=== PATIENT | male | born 1955 | race Caucasian/White ===

== ENCOUNTER 2018-04-14 17:53 | Emergency (ER) | payer OTHER ==
[2018-04-14 18:25] VITALS: RESP 18
--- NOTE | 2018-04-14 19:03 | ED ---
Skin/Abscess/FB HPI - General Chief complaint: Skin/Abscess/Foreign Body Stated complaint: rt elbow swelling Time Seen by Provider: 04/14/18 18:42 Source: patient, RN notes reviewed Mode of arrival: ambulatory Limitations: no limitations - History of Present Illness Initial comments: This is a 62-year-old male who presents to the emergency department with chief complaint of swollen, painful right elbow. Patient states that he noticed a "sac" his right elbow 2 days ago. He states that the swelling has progressively worsened. Reports mild pain. States he has normal range of motion of the elbow. Denies any injury or trauma but does state that he is unsure if he may have bumped his elbow on something. States he has a history of staph infections. Denies fevers or chills, chest pain or shortness of breath , abdominal pain, nausea or vomiting. - Related Data Home Medications Medication Instructions Recorded Confirmed Levothyroxine Sodium [Synthroid] 25 mcg PO DAILY 04/14/18 04/14/18 Multivitamins, Thera [Multivitamin 1 tab PO DAILY 04/14/18 04/14/18 (formulary)] Previous Rx's Medication Instructions Recorded Cephalexin [Keflex] 500 mg PO BID #10 capsule 04/14/18 Allergies Allergy/AdvReac Type Severity Reaction Status Date / Time codeine Allergy Itching Verified 04/14/18 19:20 Review of Systems ROS Statement: Those systems with pertinent positive or pertinent negative responses have been documented in the HPI. ROS Other: All systems not noted in ROS Statement are negative. Past Medical History Additional Past Medical History / Comment(s): hepatits c History of Any Multi-Drug Resistant Organisms: None Reported Past Surgical History: No Surgical Hx Reported Past Psychological History: No Psychological Hx Reported Smoking Status: Never smoker Past Alcohol Use History: Occasional Past Drug Use History: None Reported General Exam - General Exam Comments Initial Comments: General: Awake and alert, well-developed; in no apparent distress. HEENT: Head atraumatic, normocephalic. Pupils are equal, round and reactive to light. Extraocular movements intact. Oropharynx moist without erythema or exudate. Neck: Supple. Normal ROM. Cardiovascular: Regular rate and rhythm. No murmurs, rubs or gallops. Chest symmetrical. Respiratory: Lungs clear to auscultation bilaterally. No wheezes, rales or rhonchi. Normal respiratory effort with no use of accessory muscles. Musculoskeletal: Normal range of motion of the right elbow. There is effusion, mild tenderness, warmth and redness at the olecranon process. Mild erythema noted at the medial aspect of the right elbow. Sensation is intact. Radial pulses are 2+ equal and palpable bilaterally. Skin: [place], warm and dry with changes to the right elbow noted above. Neurological: Alert and oriented x3. CN II-XII grossly intact. Speech is fluent and answers are appropriate. No focal neuro deficits. Psychiatric: Normal mood and affect. No overt signs of depression or anxiety noted. Limitations: no limitations Course Vital Signs 04/14/18 18:22 Temperature 98.3 F Pulse Rate 71 Respiratory 18 Rate Blood Pressure 116/70 O2 Sat by Pulse 98 Oximetry Medical Decision Making - Medical Decision Making This is a 62-year-old male presents to the emergency department with chief complaint of right elbow swelling and pain. Patient denies any specific injury or trauma, but is unsure if he may have bumped his right elbow on something. He reports swelling that started 2 days ago. States that the swelling has worsened. On physical examination, there is swelling over the olecranon process with mild erythema, warmth and tenderness. Patient has normal range of motion without pain of the right elbow. Neurovascularly intact. X-ray was obtained which revealed posterior soft tissue swelling which could relate to olecranon bursitis. Case was discussed with attending physician, Dr. Dominique. Patient is afebrile and vital signs are stable. Recommend rest, ice and NSAIDs. Due to signs erythema at the medial elbow, patient will be started on Keflex. Return parameters were discussed. - Radiology Data Radiology results: report reviewed, image reviewed Right elbow x-ray impression: Posterior soft tissue swelling. No fracture. This could relate to olecranon bursitis. Disposition Clinical Impression: Olecranon bursitis of right elbow Disposition: HOME SELF-CARE Condition: Good Instructions: Elbow Bursitis (ED) Additional Instructions: Please take medications as prescribed. Please follow up with primary care provider within 1-2 days. Return to emergency department if symptoms should worsen or any concerns arise. Prescriptions: Cephalexin [Keflex] 500 mg PO BID #10 capsule Is patient prescribed a controlled substance at d/c from ED?: No Referrals: None,Stated [Primary Care Provider] - 1-2 days Time of Disposition: 19:49
--- NOTE | 2018-04-14 19:19 | XR ---
EXAMINATION TYPE: XR elbow complete RT DATE OF EXAM: 04/14/2018 COMPARISON: NONE HISTORY: Posterior elbow pain and swelling TECHNIQUE: 3 views FINDINGS: I see no fracture nor dislocation. Joint spaces are normal. There is soft tissue swelling o mai the olecranon process. IMPRESSION: Posterior soft tissue swelling. No fracture. This could relate to olecranon bursitis.
[2018-04-14] MEDS ORDERED: CEPHALEXIN 500 MG CAP PO STA (19:48)
[2018-04-14 20:23] VITALS: BP 124/78; PULSE 68; TEMP 98.4
== END 2018-04-14 20:21 | disposition home or self-care (01) ==
LOC: EC 17:53
DX: M70.21 Olecranon bursitis, right elbow (principal); Z79.899 Other long term (current) drug therapy; Z88.5 Allergy status to narcotic agent
CPT/HCPCS: 99283

== ENCOUNTER 2018-10-26 13:00 | Emergency (ER) | payer OTHER ==
[2018-10-26 13:06] VITALS: TEMP 98.1
[2018-10-26 13:07] VITALS: BP 155/78; PULSE 68; RESP 18
--- NOTE | 2018-10-26 13:56 | ED ---
General Adult HPI - General Chief complaint: Skin/Abscess/Foreign Body Stated complaint: Abscess under arm Source: patient, RN notes reviewed Mode of arrival: ambulatory Limitations: no limitations - History of Present Illness Initial comments: Patient is a 63-year-old male who presents to the emergency department with his with complaint of right armpit skin tag that has been there for a long time which has gotten bigger in the past week and painful the past 3 days. He had tried putting wart remover on it. Denies history of cancer. Patient denies any recent fever, chills, shortness of breath, chest pain, back pain, abdominal pain, nausea or vomiting, numbness or tingling, headaches or visual changes, or any other complaints. - Related Data Home Medications Medication Instructions Recorded Confirmed Levothyroxine Sodium [Synthroid] 25 mcg PO DAILY 04/14/18 10/26/18 Multivitamins, Thera [Multivitamin 1 tab PO DAILY 04/14/18 10/26/18 (formulary)] Allergies Allergy/AdvReac Type Severity Reaction Status Date / Time codeine Allergy Itching Verified 10/26/18 13:06 Review of Systems ROS Statement: Those systems with pertinent positive or pertinent negative responses have been documented in the HPI. ROS Other: All systems not noted in ROS Statement are negative. Past Medical History Additional Past Medical History / Comment(s): hepatits c History of Any Multi-Drug Resistant Organisms: None Reported Past Surgical History: No Surgical Hx Reported Past Psychological History: No Psychological Hx Reported Smoking Status: Never smoker Past Alcohol Use History: Occasional Past Drug Use History: None Reported General Exam Limitations: no limitations General appearance: alert, in no apparent distress Head exam: Present: atraumatic, normocephalic Eye exam: Present: normal appearance Respiratory exam: Present: normal lung sounds bilaterally. Absent: wheezes, rales, rhonchi Cardiovascular Exam: Present: regular rate, normal rhythm Neurological exam: Present: alert, oriented X3 Skin exam: Present: warm, dry, other (1.5x1.5 cm pedunculated mass that is erythematous. Tender to palpation.) Course Vital Signs 10/26/18 10/26/18 13:03 13:06 Temperature 98.1 F 98.1 F Pulse Rate 68 Respiratory 18 Rate Blood Pressure 155/78 O2 Sat by Pulse 99 Oximetry Medical Decision Making - Medical Decision Making I discussed with the patient the need for biopsy to rule out cancer. Patient is in agreement with this plan. Case discussed in detail with attending physician Dr. Schuler. Disposition Clinical Impression: Mass Disposition: HOME SELF-CARE Condition: Good Additional Instructions: Follow-up with your PCP and professor of religious studies in 1-2 days for biopsy. Return to the emergency department if your symptoms worsen or other concerns. Is patient prescribed a controlled substance at d/c from ED?: No Referrals: Renzo Laureano MD [Primary Care Provider] - 1-2 days Time of Disposition: 14:27
== END 2018-10-26 14:30 | disposition home or self-care (01) ==
LOC: EC 13:00
DX: R22.31 Localized swelling, mass and lump, right upper limb (principal); Z79.890 Hormone replacement therapy; Z88.5 Allergy status to narcotic agent
CPT/HCPCS: 99282

== ENCOUNTER → 2019-08-14 | Outpatient (CLI) | payer OTHER ==
--- NOTE | 2019-08-14 07:59 | US ---
EXAMINATION TYPE: US abdomen limited DATE OF EXAM: 08/14/2019 COMPARISON: NONE CLINICAL HISTORY: B19.20 HEPATITIS C. EXAM MEASUREMENTS: Liver Length: 18.1 cm Gallbladder Wall: .2 cm CBD: .2 cm Right Kidney: 9.7 x 4.5 x 4.3 cm Pancreas: Tail obscured by overlying bowel gas Liver: Diffusely coarsened hepatic echotexture. Diminished visualization of the portal triads limitin g evaluation for hepatic masses. No focal mass is seen on today's exam. Gallbladder: wnl Evidence for sonographic Trevizo's sign: No CBD: wnl Right Kidney: There is a 1.2 cm shadowing calculus in the right midpole. Cortical renal thinning is also seen. No hydronephrosis. IMPRESSION: 1. Diffusely coarsened hepatic echotexture is in keeping with this patient's history of known hepatoc ellular disease. No focal masses appreciated on today's exam. 2. Nonobstructing 1.2 cm right renal calculus and cortical renal thinning suggesting chronic medical renal disease.
== END | disposition home or self-care (01) ==
LOC: RADUSWWP 06:51
PROVIDERS: ATTEND Internal Medicine Infectious Disease
DX: B19.20 Unspecified viral hepatitis C without hepatic coma (principal); Z87.19 Personal history of other diseases of the digestive system
CPT/HCPCS: 76705

== ENCOUNTER → 2019-08-29 | Outpatient (CLI) | payer OTHER ==
[2019-08-29 17:00] LABS: African American GFR (CKD) 93.1 (60.0-200.0); Albumin 4.2 g/dL (3.80-4.90); Albumin/Globulin Ratio 1.45 (1.60-3.17); Anion Gap 5.5 mmol/L (4.00-12.00); Calcium 9.3 mg/dL (8.7-10.3); Carbon Dioxide 27.5 mmol/L (21.6-31.8); Globulin 2.9 g/dL (1.6-3.3); Non-African American GFR(CKD) 80.3 (60.0-200.0); Potassium 4.1 mmol/L (3.5-5.5); Total Bilirubin 0.5 mg/dL (0.3-1.2); Total Protein 7.1 g/dL (6.2-8.2)
== END | disposition home or self-care (01) ==
LOC: LABWHC1 11:16
PROVIDERS: ATTEND Internal Medicine Infectious Disease
DX: B19.20 Unspecified viral hepatitis C without hepatic coma (principal)
CPT/HCPCS: 36415; 80053

== ENCOUNTER → 2019-12-12 | Outpatient (CLI) | payer SELFPAY | END | disposition home or self-care (01) | LOC: LABWHC1 09:26 | PROVIDERS: ATTEND Internal Medicine Infectious Disease | DX: B19.20 Unspecified viral hepatitis C without hepatic coma (principal) | CPT/HCPCS: 36415; 87522 ==

== ENCOUNTER → 2020-05-20 | Outpatient (CLI) | payer SELFPAY ==
[2020-05-20 14:09] LABS: Basophils % (A) 0 %; Eosinophils # (A) 0.1 k/uL (0-0.7); Eosinophils % (A) 2 %; HCT 42.9 % (39.0-53.0); HGB 14.4 gm/dL (13.0-17.5); Lymphocytes # (A) 2.5 k/uL (1.0-4.8); Lymphocytes % (A) 38 %; MCH 30.8 pg (25.0-35.0); MCHC 33.4 g/dL (31.0-37.0); Mean Platelet Volume 7.6; Monocytes # (A) 0.4 k/uL (0-1.0); Monocytes % (A) 5 %; Neutrophils # (A) 3.4 k/uL (1.3-7.7); Neutrophils % (A) 53 %; Platelet Count 240 k/uL (150-450); RBC 4.67 m/uL (4.30-5.90); RDW 13.2 % (11.5-15.5); WBC 6.5 k/uL (3.8-10.6)
[2020-05-20 20:03] LABS: African American GFR (CKD) 82.4 (60.0-200.0); Anion Gap 8.6 mmol/L (4.00-12.00); Carbon Dioxide 24.4 mmol/L (21.6-31.8); Non-African American GFR(CKD) 71.1 (60.0-200.0); Potassium 4.3 mmol/L (3.5-5.5)
== END | disposition home or self-care (01) ==
LOC: LABWHC1 13:04
PROVIDERS: ATTEND Internal Medicine
DX: R53.82 Chronic fatigue, unspecified (principal)
CPT/HCPCS: 36415; 80051; 82565; 84443; 84450; 84460; 84520; 85025; 87522

== ENCOUNTER 2021-12-15 15:41 | Emergency (ER) | payer MEDICARE ==
[2021-12-15 15:52] VITALS: BP 165/110; TEMP 98.1
[2021-12-15] MEDS ORDERED: SODIUM CHLORIDE 0.9% 1,000 ML IV STA (18:36)
[2021-12-15] MEDS ORDERED: KETOROLAC 15 MG/ML 1 ML VIAL IVP STA (18:36)
[2021-12-15 18:54] LABS: Basophils % (A) 0 %; Eosinophils # (A) 0.1 k/uL (0-0.7); Eosinophils % (A) 1 %; HCT 45.1 % (39.0-53.0); HGB 15.3 gm/dL (13.0-17.5); Lymphocytes % (A) 22 %; MCH 31.7 pg (25.0-35.0); MCV 93.4 fL (80.0-100.0); Mean Platelet Volume 7.8; Monocytes # (A) 0.3 k/uL (0-1.0); Monocytes % (A) 3 %; Neutrophils # (A) 6.6 k/uL (1.3-7.7); Neutrophils % (A) 73 %; Platelet Count 305 k/uL (150-450); RBC 4.82 m/uL (4.30-5.90); RDW 13.1 % (11.5-15.5); WBC 9.1 k/uL (3.8-10.6)
[2021-12-15 19:03] LABS: INR 0.9 (<1.2); Partial Thromboplastin Time 24.1 sec (22.0-30.0); Prothrombin Time 10.4 sec (9.0-12.0)
[2021-12-15 19:09] LABS: Appearance,Urine Clear (Clear); Bilirubin,Urine Negative (Negative); Blood,Urine Small (Negative); Color,Urine Yellow; Glucose,Urine (UA) Negative (Negative); Ketones,Urine 1+ (Negative); Leukocyte Esterase,Urine Negative (Negative); Mucus,Urine Rare /hpf; Nitrite,Urine Negative (Negative); PH, Urine 5.5 (5.0-8.0); Protein,Urine Negative (Negative); RBC,Urine 4 /hpf (0-5); Specific Gravity,Urine 1.019 (1.001-1.035); Urobilinogen,Urine <2.0 mg/dL (<2.0); WBC,Urine 4 /hpf (0-5)
[2021-12-15 19:10] LABS: ALT 17 U/L (4-49); AST 29 U/L (17-59); African American GFR (CKD) >90 (>60 ml/min/1.73 sqM); Albumin 4.6 g/dL (3.5-5.0); Alkaline Phosphatase 70 U/L (38-126); Amylase 116 U/L (30-110); Anion Gap 11 mmol/L; Blood Urea Nitrogen 10 mg/dL (9-20); Calcium 9.3 mg/dL (8.4-10.2); Carbon Dioxide 20 mmol/L (22-30); Chloride 107 mmol/L (98-107); Glucose 91 mg/dL (74-99); Lipase 248 U/L (23-300); Non-African American GFR(CKD) >90 (>60 ml/min/1.73 sqM); Sodium 138 mmol/L (137-145); Total Bilirubin 0.6 mg/dL (0.2-1.3); Total Protein 7.8 g/dL (6.3-8.2)
--- NOTE | 2021-12-15 19:30 | ED ---
Abdominal Pain HPI - General Chief Complaint: Abdominal Pain Stated Complaint: Stomach pain Time Seen by Provider: 12/15/21 18:13 Source: patient Mode of arrival: wheelchair Limitations: no limitations - History of Present Illness Initial Comments: Patient is a 66-year-old male presenting with chief complaint of abdominal pain. Patient states that the pain is located in the epigastric region, he describes it as "the worst stomachache of my life". Pain wraps around the side and radiates to the back. Patient has had low appetite today, cannot say if ingestion of food makes pain better or worse. He has felt nauseous, no vomiting. He has taken no supportive treatment at home. His partner present at bedside states that he has been having recurring issues with abdominal pain over the last month. Patient states that it is difficult to take a deep breath due to the pressure pushing up on the diaphragm. He denies chest pain, shortness of breath, fever, chills, diarrhea, hematochezia, hematemesis, dysuria, hematuria, urgency, frequency, weakness, headache, vision or hearing changes, numbness, tingling. - Related Data Home Medications Medication Instructions Recorded Confirmed Levothyroxine Sodium [Synthroid] 88 mcg PO DAILY 12/15/21 12/15/21 Previous Rx's Medication Instructions Recorded Pantoprazole [Protonix] 20 mg PO DAILY #20 tab 12/15/21 Sucralfate [Carafate] 1 gm PO ACHS #20 tablet 12/15/21 Sucralfate [Carafate] 1 gm PO ACHS #200 ml 12/15/21 Allergies Allergy/AdvReac Type Severity Reaction Status Date / Time codeine Allergy Itching Verified 12/15/21 21:07 Review of Systems ROS Statement: Those systems with pertinent positive or pertinent negative responses have been documented in the HPI. ROS Other: All systems not noted in ROS Statement are negative. Past Medical History Past Medical History: Liver Disease, Thyroid Disorder Additional Past Medical History / Comment(s): hepatitis C History of Any Multi-Drug Resistant Organisms: None Reported Past Surgical History: No Surgical Hx Reported Past Psychological History: No Psychological Hx Reported Smoking Status: Former smoker Past Alcohol Use History: Occasional Past Drug Use History: None Reported General Exam Limitations: no limitations General appearance: alert, in no apparent distress Head exam: Present: atraumatic, normocephalic, normal inspection Eye exam: Present: normal appearance. Absent: scleral icterus ENT exam: Present: normal exam, mucous membranes moist Neck exam: Present: normal inspection Respiratory exam: Present: normal lung sounds bilaterally. Absent: respiratory distress, wheezes, rales, rhonchi, stridor Cardiovascular Exam: Present: regular rate, normal rhythm, normal heart sounds. Absent: systolic murmur, diastolic murmur, rubs, gallop, clicks GI/Abdominal exam: Present: soft, tenderness (Bilateral upper quadrants), normal bowel sounds. Absent: distended, guarding, rebound, rigid Neurological exam: Present: alert, oriented X3, CN II-XII intact Psychiatric exam: Present: normal affect, normal mood Skin exam: Present: warm, dry, intact, normal color. Absent: rash Course Vital Signs 12/15/21 15:49 Temperature 98.1 F Pulse Rate 57 L Respiratory 18 Rate Blood Pressure 165/110 O2 Sat by Pulse 100 Oximetry Medical Decision Making - Medical Decision Making Patient is a 66-year-old male presenting with chief complaint of epigastric pain. Patient states that pain started today and feels like "the worst stomachache of my life". He admits to some radiation to the back and nausea with no vomiting. On examination there are bowel sounds in all 4 quadrants, some tenderness of the bilateral upper quadrants. Lab work is unremarkable. Urine shows small amount of blood, patient states that he has known kidney stones. Acute abdominal series with chest x-ray is negative. CT of abdomen and pelvis without contrast shows no evidence to explain his symptoms. Patient was given Toradol and GI cocktail, which he states alleviated his symptoms. Patient appears stable for discharge with outpatient follow-up at this time. Follow-up with PCP and GI this week. Provided patient a prescription for Protonix and Carafate (provided prescription for pill and liquids solution in the event his insurance does not cover the liquids solution and I explained this to the patient). Educated the patient on return parameters and answered all questions. Report back to ER if any worsening symptoms. Patient conveyed verbal understanding and agreed to the plan. I discussed this case with my attending Dr. Thao. - Lab Data Result diagrams: 12/15/21 18:39 12/15/21 18:39 Lab Results 12/15/21 12/15/21 12/15/21 Range/Units 18:39 18:39 18:39 WBC 9.1 (3.8-10.6) k/uL RBC 4.82 (4.30-5.90) m/uL Hgb 15.3 (13.0-17.5) gm/dL Hct 45.1 (39.0-53.0) % MCV 93.4 (80.0-100.0) fL MCH 31.7 (25.0-35.0) pg MCHC 34.0 (31.0-37.0) g/dL RDW 13.1 (11.5-15.5) % Plt Count 305 (150-450) k/uL MPV 7.8 Neutrophils % 73 % Lymphocytes % 22 % Monocytes % 3 % Eosinophils % 1 % Basophils % 0 % Neutrophils # 6.6 (1.3-7.7) k/uL Lymphocytes # 2.0 (1.0-4.8) k/uL Monocytes # 0.3 (0-1.0) k/uL Eosinophils # 0.1 (0-0.7) k/uL Basophils # 0.0 (0-0.2) k/uL PT 10.4 (9.0-12.0) sec INR 0.9 (<1.2) APTT 24.1 (22.0-30.0) sec Sodium (137-145) mmol/L Potassium (3.5-5.1) mmol/L Chloride (98-107) mmol/L Carbon Dioxide (22-30) mmol/L Anion Gap mmol/L BUN (9-20) mg/dL Creatinine (0.66-1.25) mg/dL Est GFR (CKD-EPI)AfAm (>60 ml/min/1.73 sqM) Est GFR (CKD-EPI)NonAf (>60 ml/min/1.73 sqM) Glucose (74-99) mg/dL Plasma Lactic Acid Jen[place] (0.7-2.0) mmol/L Calcium (8.4-10.2) mg/dL Total Bilirubin (0.2-1.3) mg/dL AST (17-59) U/L ALT (4-49) U/L Alkaline Phosphatase (38-126) U/L Troponin I (0.000-0.034) ng/mL Total Protein (6.3-8.2) g/dL Albumin (3.5-5.0) g/dL Amylase (30-110) U/L Lipase (23-300) U/L Urine Color Yellow Urine Appearance Clear (Clear) Urine pH 5.5 (5.0-8.0) Ur Specific [place] 1.019 (1.001-1.035) Urine Protein Negative (Negative) Urine Glucose (UA) Negative (Negative) Urine Ketones 1+ H (Negative) Urine Blood Small H (Negative) Urine Nitrite Negative (Negative) Urine Bilirubin Negative (Negative) Urine Urobilinogen <2.0 (<2.0) mg/dL Ur Leukocyte Esterase Negative (Negative) Urine RBC 4 (0-5) /hpf Urine WBC 4 (0-5) /hpf Urine Mucus Rare H (None) /hpf 12/15/21 12/15/21 12/15/21 Range/Units 18:39 18:39 18:39 WBC (3.8-10.6) k/uL RBC (4.30-5.90) m/uL Hgb (13.0-17.5) gm/dL Hct (39.0-53.0) % MCV (80.0-100.0) fL MCH (25.0-35.0) pg MCHC (31.0-37.0) g/dL RDW (11.5-15.5) % Plt Count (150-450) k/uL MPV Neutrophils % % Lymphocytes % % Monocytes % % Eosinophils % % Basophils % % Neutrophils # (1.3-7.7) k/uL Lymphocytes # (1.0-4.8) k/uL Monocytes # (0-1.0) k/uL Eosinophils # (0-0.7) k/uL Basophils # (0-0.2) k/uL PT (9.0-12.0) sec INR (<1.2) APTT (22.0-30.0) sec Sodium 138 (137-145) mmol/L Potassium 4.0 (3.5-5.1) mmol/L Chloride 107 (98-107) mmol/L Carbon Dioxide 20 L (22-30) mmol/L Anion Gap 11 mmol/L BUN 10 (9-20) mg/dL Creatinine 0.87 (0.66-1.25) mg/dL Est GFR (CKD-EPI)AfAm >90 (>60 ml/min/1.73 sqM) Est GFR (CKD-EPI)NonAf >90 (>60 ml/min/1.73 sqM) Glucose 91 (74-99) mg/dL Plasma Lactic Acid Jen[place] 1.4 (0.7-2.0) mmol/L Calcium 9.3 (8.4-10.2) mg/dL Total Bilirubin 0.6 (0.2-1.3) mg/dL AST 29 (17-59) U/L ALT 17 (4-49) U/L Alkaline Phosphatase 70 (38-126) U/L Troponin I <0.012 (0.000-0.034) ng/mL Total Protein 7.8 (6.3-8.2) g/dL Albumin 4.6 (3.5-5.0) g/dL Amylase 116 H (30-110) U/L Lipase 248 (23-300) U/L Urine Color Urine Appearance (Clear) Urine pH (5.0-8.0) Ur Specific [place] (1.001-1.035) Urine Protein (Negative) Urine Glucose (UA) (Negative) Urine Ketones (Negative) Urine Blood (Negative) Urine Nitrite (Negative) Urine Bilirubin (Negative) Urine Urobilinogen (<2.0) mg/dL Ur Leukocyte Esterase (Negative) Urine RBC (0-5) /hpf Urine WBC (0-5) /hpf Urine Mucus (None) /hpf - Radiology Data Radiology results: report reviewed CT of abdomen and pelvis without contrast: No evidence for acute intra-abdominal process to explain the patient's symptomatology. Bilateral nonobstructing renal calculi. Bilateral fat filled inguinal hernias. Acute abdominal series with chest x-ray: No radiographic evidence for acute abdominal process. No acute cardiopulmonary process. Disposition Clinical Impression: Gastritis Disposition: HOME SELF-CARE Condition: Good Additional Instructions: Follow-up with PCP in one to 2 days. Follow-up with GI this week. Take medication as prescribed. I have sent a prescription for Carafate in the form of a pill and a liquid suspension overreaching her pharmacy, only take whichever is most cost effective, do NOT take both the tablet and liquid suspension. Report back to ER if any worsening symptoms. Prescriptions: Sucralfate [Carafate] 1 gm PO ACHS #200 ml Sucralfate [Carafate] 1 gm PO ACHS #20 tablet Pantoprazole [Protonix] 20 mg PO DAILY #20 tab Is patient prescribed a controlled substance at d/c from ED?: No Referrals: Primo Benoit DO [Primary Care Provider] - 1-2 days Luann Antoine MD [STAFF PHYSICIAN] - 1-2 days Time of Disposition: 21:40
--- NOTE | 2021-12-15 19:31 | XR ---
EXAMINATION TYPE: XR abdomen acute w cxr DATE OF EXAM: 12/15/2021 6:50 PM INDICATION: Patient age:Male; 66 years old; Reason for study: Abdominal pain; COMPARISON: None. TECHNIQUE: Two radiographic views of the abdomen and an a chest radiograph were obtained. FINDINGS CHEST: Lungs/Pleura: The lungs are clear. There is no evidence of pleural effusion, focal consolidation or p neumothorax. Mediastinum: Unremarkable. Vasculature: Normal. Heart: Normal in size. Musculoskeletal: The osseous structures are intact. Mild multilevel disc degeneration changes through out the spine. FINDINGS ABDOMEN: Bowel gas pattern: Normal without dilated loops of small or large bowel. Fecal material and gas are d emonstrated throughout the colon and rectum. Abnormal calcifications: Pelvic phleboliths are present. Musculoskeletal: Mild multilevel disc degeneration changes throughout the spine. Other: None. IMPRESSION: 1. No radiographic evidence for acute abdominal process. 2. No acute cardiopulmonary process
[2021-12-15] MEDS ORDERED: MAG HYDROX/AL HYDROX/SIMETH 30 ML, HYOSCYAMINE ELIXIR 10 ML, LIDOCAINE VISCOUS 2% 10 ML PO STA ×3 (20:43)
--- NOTE | 2021-12-15 20:47 | CT ---
EXAMINATION TYPE: CT abdomen pelvis wo con CT DLP: 600.8 mGycm, Automated exposure control for dose reduction was used. DATE OF EXAM: 12/15/2021 8:18 PM COMPARISON: ultrasound 08/14/2019. CLINICAL INDICATION:Male, 66 years old with history of epigastric pain; h/o epigastric pain TECHNIQUE: Standard CT of the abdomen and pelvis without IV or oral contrast. Lack of IV or oral co ntrast limits evaluation of solid and hollow organ viscera. Coronal and sagittal reformats were perfo rmed. FINDINGS: LOWER CHEST: Unremarkable ABDOMEN LIVER: Unremarkable GALLBLADDER AND BILE DUCTS: Unremarkable. PANCREAS: Unremarkable. SPLEEN: Small splenule is present. ADRENAL GLANDS: Unremarkable. KIDNEYS AND URETERS: No evidence of hydronephrosis. Bilateral nonobstructing calculi measuring up to 12 mm in the right and 4 mm on the left. The ureters are unremarkable. PELVIS BLADDER: Unremarkable REPRODUCTIVE: Small hydroceles bilaterally. ABDOMEN & PELVIS STOMACH AND BOWEL: No evidence of bowel obstruction. Appendix is visualized and within normal limits . PERITONEUM: No evidence of pneumoperitoneum or free fluid. VASCULATURE: No evidence of aortic aneurysm. MUSCULOSKELETAL: No acute osseous . Multilevel disc degeneration changes worse at L3 with a Schmorl n ode at the superior endplate of L3 and disc space narrowing and sclerosis at L5-S1. LYMPH NODES: No gross evidence for lymphadenopathy. SOFT TISSUE/ABDOMINAL WALL: Bilateral fat filled inguinal hernia. IMPRESSION: 1. No evidence for acute intra-abdominal process to explain the patient's symptomology. 2. Bilateral nonobstructing renal calculi. 3. Bilateral fat filled inguinal hernias.
[2021-12-15 22:01] VITALS: PULSE 66; RESP 16
== END 2021-12-15 22:01 | disposition home or self-care (01) ==
LOC: EC 15:41
DX: K29.70 Gastritis, unspecified, without bleeding (principal); E07.9 Disorder of thyroid, unspecified; Z79.890 Hormone replacement therapy; Z87.891 Personal history of nicotine dependence; Z88.5 Allergy status to narcotic agent
CPT/HCPCS: 36415; 93005; 80053; 82150; 83605; 83690; 84484; 85025; 85610; 85730; 81001; 74022; 74176; 99284; 96374; 96361; J1885; 99283